=== PATIENT | female | born 2000 | race Two or more races ===

== ENCOUNTER 2020-09-08 14:34 | Emergency (ER) | payer SELFPAY ==
[~2020-09-08] VITALS: Ht 162.6 cm; Wt 96.6 kg
[2020-09-08 14:49] VITALS: BP 130/84
[2020-09-08] MEDS ORDERED: TETANUS-DIPTH-ACEL PERTUSSIS 0.5ML SYR Tdap IM ONE (15:00)
[2020-09-08] MEDS ORDERED: BACITRACIN TOP OINT 1 UD PKG TOP ONE (16:30)
== END 2020-09-08 16:48 | disposition home or self-care (01) ==
LOC: ER 14:34
DX: S61.356A Open bite of right little finger with damage to nail, initial encounter (principal); W54.0XXA Bitten by dog, initial encounter; Y93.89 Activity, other specified; Y92.89 Other specified places as the place of occurrence of the external cause; Y99.8 Other external cause status
CPT/HCPCS: 11730; 73140; 90471; 90715